=== PATIENT | female | born 1975 | race Hispanic/Latino ===

== ENCOUNTER 2023-08-21 09:03 | Day surgery (SDC) | payer OTHER, SELFPAY ==
[2023-08-21] VITALS (19 sets, daily range): BP systolic 71–101; BP diastolic 41–71; PULSE 51–82; RESP 12–62; TEMP 36.1–37.9; O2SAT 94–100; BMI 22.1
--- NOTE | 2023-08-21 | PATH_ITS ---
[facility] Accession Number: [id number] No. of containers..01 Tissue . 01 Material submitted: . uterus - UTERUS,UTERINE FIBROID,BILATERAL FALLOPIAN TUBES, RIGHT OVARY . 01 Diagnosis: Uterus, Left and Right Fallopian Tubes, Right Ovary, Supracervical Hysterectomy, Bilateral Salpingectomy, and Oophorectomy: Endometrium: Secretory phase. Myometrium: Leiomyomata with hyalinizing-type necrosis, symplastic change, and features of treatment effect. Serosa: Fibrovascular adhesions. Fallopian tubes: No significant pathologic abnormality. Ovary: Cystic follicles and corpus luteum. [facility] 08/31/2023 1047 Local . 01 Comment: The leiomyoma shows focal nuclear atypia consistent with symplastic/degenerative-type atypia. There is no evidence of malignancy. [employer] slides of this case are also reviewed by Dr. Ruthy Evans, who concurs with the given interpretation. . 01 Electronically signed: . Eliane Simmons MD, Pathologist NPI- [id number] . 01 Gross description: . The specimen is received in formalin labeled with the patient's name, , and uterus, uterine fibroid, bilateral fallopian tubes, and right ovary, consists of a disrupted, fragmented uterus (451 grams, 16.2 x 9.3 x 7.1 cm in aggregate), with two detached unoriented fimbriated fallopian tubes (5.2 x 0.6 cm and 7.9 x 0.7 cm, respectively), and a single presumed right ovary (14 grams, 3.7 x 3.2 x 1.9 cm), with no cervix or additional adnexa identified. The serosa is kennedy and roughened with no hemorrhage identified. The endometrium is red, lush, and averages 0.3 cm thick with no lesions grossly identified. The myometrium is kennedy and trabecular with multiple well-circumscribed white whorled nodules ranging from 0.3 to 6.1 cm in greatest dimension. The largest nodule has a yellow area of discoloration occupying approximately 20% of the cut surface with no additional hemorrhage or necrosis identified. . The longer fallopian tube has violaceous, smooth serosa with no cystic structures identified, and sectioning reveals an unremarkable stellate lumen. The shorter fallopian tube has violaceous roughened serosa with no cystic structures identified, and sectioning reveals an unremarkable stellate lumen. . The ovary has a kennedy cerebriform external surface, and sectioning reveals multiple cystic structures ranging from 0.2 to 1.4 cm in greatest dimension with variable contents of kennedy serous fluid to red-brown gelatinous material. The remaining cut surface is physiologic and unremarkable with no discrete lesions identified. . [employer] sections are submitted as follows: A1-A2: Endometrium. A3: Serosa. A4-A6: Rep nodules. A7: Longer fallopian tube to include one-half of bisected fimbria and cross sections. A8: Easton fallopian tube to include one-half of bisected fimbria and cross sections. A9-A10: Ovary with cystic structures. ([id number]) /MRV 08/22/2023 1906 Local . 01 Pathologist provided ICD-10: D25.0, N92.0 . 01 CPT . 309342 Specimen Comment: A courtesy copy of this report has been sent to [phone] Performed at: 01 [facility] [address] [place] [address], [place], [place] [id number] MD Haider Segura MD Phone: [phone]
[2023-08-21] MEDS: ACETAMINOPHEN IV 1,000 MG/100 ML VIAL 400 MG IV (09:36)
[2023-08-21] MEDS: SCOPOLAMINE 1 PATCH TOP (09:36)
[2023-08-21] MEDS: LACTATED RINGERS 1,000 ML 21 ML IV ×3 (09:45→13:36)
--- NOTE | 2023-08-21 09:56 | PM.PREOP ---
Pre-operative Note Interval Note History & Physical reviewed/Exam performed by Physician: Yes Changes to H&P: No H&P completed within 30 days and has changed as indicated here:: 07/31/23
[2023-08-21] MEDS: CEFAZOLIN 2 GM/100 ML PREMIX 100 ML IV (10:14)
[2023-08-21] MEDS: BUPIVACAINE 0.5% (PF) 30 ML, EPINEPHrine 0.15 MG INJ (10:43)
--- NOTE | 2023-08-21 10:46 | SUR.OPER ---
Lithotomy on padded OR bed. Amery Pad Positioner under torso. Head on pillow, arms padded and tucked at sides. Legs secured in padded yellow fins stirrups.
[2023-08-21] MEDS: ROPIVACAINE 0.2% PF 2 MG/ML 10ML AMP 20 ML INJ (10:54)
[2023-08-21] MEDS: SODIUM CHLORIDE 0.9% 30 ML, VASOPRESSIN 20 UNIT INJ (11:39)
[2023-08-21] MEDS: BUPIVACAINE LIPOSOME 266 MG/20 ML VIAL INJ (12:30)
--- NOTE | 2023-08-21 13:06 | PM.GYNOP.1 ---
Operative Date/Time/Diagnoses Date of procedure: 08/21/23 Time of procedure: 13:06 Pre-op diagnosis: Menorrhagia Dysmenorrhea Fibroid uterus Left endometrioma Post-op diagnosis: same Procedure & Clinicians Procedure: Procedures Operation Date: 08/21/23 10:15 Actual Procedure Side Surgeon p Diagnostic Laparoscopy converted to Open Abdominal Supracervical Hysterectomy, left salpingectomy, right Salping-oophorectomy, Debbie Arellano MD s Cystoscopy Debbie Arellano MD Indications: 48-year-old 0 with severe dysmenorrhea, menorrhagia, left endometrioma, and enlarged fibroid uterus Surgeon: Debbie Arellano Manufacturing Assistant: Zara Celeste Anesthesia Type: General and Local Operative Notes Findings: 12 week size multi fibroid uterus Endometriosis of the left adnexa Normal tubes Normal liver and gallbladder Wide uterus Closure Type: primary Specimen(s): left tube and right tube & ovary Applied: catheter (To continuous drainage) Estimated blood loss (mL): 200 Blood products transfused: none Procedure in detail: The patient was taken to the operating room where she was placed in the dorsal supine position. After adequate general endotracheal anesthesia was achieved, she was placed in the dorsal lithotomy position, and prepped and draped in the usual sterile fashion. A time-out was performed. A bivalve speculum was placed into the vagina and the anterior lip of the cervix was grasped with a single-tooth tenaculum. The cervical os was sequentially dilated until the Zumi uterine manipulator could pass easily into the endometrial cavity. The single-tooth tenaculum was removed from the anterior lip of the cervix. The bivalve speculum was removed from the vagina. Attention was then turned to the abdomen where 6 cc of 0.5% Marcaine with epinephrine were injected in the umbilical fold. The Veress needle was placed into the peritoneal cavity, and its placement confirmed by aspiration and drop test. The abdominal cavity was insufflated with 3 L of CO2. The Veress needle was removed, and a 5 mm trocar was placed without difficulty. Two other trocars were placed 4 cm lateral to the midline after 6 cc of 0.5% Marcaine with epinephrine were injected. Two 5 mm incisions were made. Two 5 mm trocars were placed under direct visualization. The abdomen and pelvis were inspected with the findings noted above. The right tube was grasped with an atraumatic grasper. Using the power seal, the mesosalpinx was cauterized and cut all the way down to the cornua of the uterus. The utero-ovarian vessels were cauterized and cut. The broad ligament and round ligament were cauterized and cut. On the left side the left tube was grasped with an atraumatic grasper. The mesosalpinx was cauterized and cut with the power seal. The utero-ovarian vessels were cauterized and cut. At this point there was found to be bowel adherent to the posterior lower uterine segment and cervix. There was an endometrioma in the left adnexa that burst with manipulation. The pelvis was copiously irrigated. The decision was made due to the bowel adhesions and the difficulty with visualization due to the size of the uterus, especially the width, to proceed with an open procedure. The instruments were removed from the abdomen. A Pfannenstiel skin incision was made 2 fingerbreadths above the pubic symphysis and carried through to the underlying layer of fascia. The fascia was nicked in the midline and the incision extended bilaterally with the Horne scissors. The superior aspect of the fascial incision was grasped with the Jaxon clamps, elevated, and the underlying rectus muscles dissected off sharply and bluntly. Attention was then turned to the inferior aspect of this incision which in a similar fashion was grasped with the Jaxon, elevated, and the underlying rectus muscles dissected off sharply and bluntly. The rectus muscles were in the midline. The peritoneum was identified and grasped between 2 hemostats. It was entered sharply with the Metzenbaum scissors. This incision was extended superiorly and inferiorly with good visualization of the bladder. Initially the Michael retractor system was placed into the incision. Could not visualize adequately. A decision was made to change to the O'Patricio O'Dior retractor system. This was placed with care to avoid entrapping the bowel. The bladder blade was inserted. The back blade with moist laps were placed to retract the bowel. The uterus was grasped with a 4 tooth tenaculum. A solution of 20 cc of Pitressin were placed in 30 cc of saline was prepared. Proximally 12 cc of this solution was injected sub serosal only. An incision was made with the Bovie and the large fibroid was grasped and dissected out of the uterus to decrease the volume of the uterus and increased visualization. The broad ligament and round ligament on the right side were clamped, transected, and suture ligated with 0 Vicryl. The bladder flap was created using the Metzenbaum scissors. On the left side the bowel was gently dissected off of the lower posterior uterine segment and cervix. Broad ligament and round ligament were clamped, transected, and suture ligated. The uterine artery on the left side was clamped, transected, and suture ligated. The remainder of the bladder flap was created and the bladder was taken down off the lower uterine segment and cervix. The Zumi uterine manipulator was removed from the uterus. The uterus was amputated using the Bovie and handed off for specimen. The tubes and right ovary were included in the specimen. The cervical canal was extensively cauterized with the Bovie. The cervix was closed with a series of simple interrupted sutures using 0 Vicryl. The pelvis was copiously irrigated with warm normal saline. There was no bleeding noted. The retractor and lap sponges were removed from the abdomen/incision. Due to the width of the uterus and the degree of adhesions, a decision was made to proceed with a cystoscopy. A cystoscopy was performed and there were urine jets from both ureteral orifices. There was also a bubble at the dome of the bladder. Attention was then turned back to the abdomen. The peritoneum was closed with 2-0 Vicryl in a running fashion. The fascia was reapproximated using 0 Vicryl in a running fashion. The subcutaneous layer was copiously irrigated with warm normal saline. No bleeding was noted. 20 cc of Exparel were injected above the fascia. Three simple interrupted sutures of 3-0 Vicryl were placed in the subcutaneous layer. The skin was closed with 4-0 Monocryl in a subcuticular fashion. The 3 laparoscopy incisions were also closed with Monocryl in a simple interrupted suture. Steri-Strips were placed over all of the incisions. Allevyn dressings were placed over the laparoscopy incisions. A Telfa, ABD pad, and Medipore tape were placed over the Pfannenstiel incision. Sponge, lap, and instrument counts were correct x2. The patient tolerated the procedure well, and was taken to PACU in stable condition. Complications: none Post-operative Condition: stable Disposition: PACU Plan for aftercare: To the center/acute care after recovery
[2023-08-21] MEDS: fentaNYL 100 MCG/2 ML INJ IV ×2 (13:18→13:25)
[2023-08-21] MEDS: ONDANSETRON 4 MG/2 ML INJ IV (13:32)
[2023-08-21] MEDS: HYDROMORPHONE 1 MG INJ IV (13:42)
[2023-08-21] MEDS: OXYCODONE IR 5 MG TABLET PO ×3 (14:13→18:35)
[2023-08-21] MEDS: MORPHINE 2 MG/ML INJ IV ×2 (15:36→21:30)
[2023-08-21] MEDS: LACTATED RINGERS 1,000 ML 100 ML IV (15:53)
--- NOTE | 2023-08-21 16:11 | PC.NURSE ---
RADIO INTERFERENCE SUPERVISOR ordered telemetry 1326. RADIO INTERFERENCE SUPERVISOR called @1410 to be notified that we dont have a tele unit on the center. Provider stated she wanted is for PACU and continous tele does not currently need to be on the patient.
--- NOTE | 2023-08-21 16:13 | PC.NURSE ---
1443- This RN called OBGYN to update provider on pt vitals. see [employer]. Pt transferred over from PACU with 70/40s BP and febrile with a temp of 100.3. Warm blankets removed. pt temp came down to 97F. pain controlled (see meditech) and BP retaken- stable.
[2023-08-21] MEDS: KETOROLAC 30 MG/ML VIAL IV (17:57)
--- NOTE | 2023-08-21 18:04 | PC.NURSE ---
1510: initial assessment completed-see [facility]. Pt groggy, but responds appropriately to verbal questions. VSS. 3 op sites notes on abdomen. Scant amount of blood observed on middle abd dressing, the other op sites are CD&I. Lower abd dressing CD&I. Gill patent w/ clear urine noted. Ice pack to incision. Call light w/in reach
[2023-08-21] MEDS: DOCUSATE 100 MG CAPSULE 200 MG PO (20:15)
[2023-08-21] MEDS: OXYCODONE IR 5 MG TABLET 10 MG PO (20:16)
[2023-08-21] MEDS: ACETAMINOPHEN 325 MG TABLET 650 MG PO (20:16)
[2023-08-22] MEDS: OXYCODONE IR 5 MG TABLET 10 MG PO ×4 (01:15→20:20)
[2023-08-22] MEDS: KETOROLAC 30 MG/ML VIAL IV (01:15)
[2023-08-22 01:16] VITALS: BP 95/61; PULSE 98; RESP 16; TEMP 37.1; O2SAT 98
[2023-08-22 06:00] VITALS: BP 85/56; PULSE 73; RESP 14; TEMP 37.2
[2023-08-22] MEDS: ACETAMINOPHEN 325 MG TABLET 650 MG PO ×3 (06:08→21:35)
[2023-08-22 06:42] LABS: Add Manual Diff / Slide Review NO; Basophils Absolute Auto 0 /uL (0-100); Eosinophils Absolute Auto 0 /uL (0-450); Eosinophils Percent Auto 0.1 % (2-4); Hematocrit 28.3 % (36-46); Hemoglobin 9.7 g/dL (12.0-16.0); Lymphocytes Absolute Auto 1100 /uL (1100-4500); Lymphocytes Percent Auto 11.9 % (25-40); Mean Corpuscular HGB Conc 34.4 % (30-36); Mean Corpuscular Hemoglobin 31.6 PG (26-34); Mean Corpuscular Volume 91.7 fL (80-100); Monocytes Absolute Auto 1100 /uL (0-900); Monocytes Percent Auto 12.1 % (3-14); Neutrophils Absolute Auto 6800 /uL (1500-7000); Neutrophils Percent Auto 75.9 % (50-75); Platelet Count 175 X10^3/uL (150-400); Red Blood Cell Count 3.08 X10^6/uL (4.0-5.2); Red Cell Distribution Width 13.4 % (11.6-14.8)
--- NOTE | 2023-08-22 07:59 | PM.PNPO.1 ---
Subjective Subjective Date Patient Seen: 08/22/23 Time Patient Seen: 07:59 Interval history: Postop day # 1 status post open supracervical hysterectomy/right salpingo-oophorectomy/left salpingectomy. Open procedure done due to size of the uterus and bowel to uterine adhesions as well as endometriosis in the left adnexa. Patient's pain is well controlled. She has tolerated soft diet. Exam Vital Signs (past 8 hours): - 08/22/23 01:16 08/22/23 06:00 Temperature 98.8 F 99.0 F Pulse Rate 98 H 73 Respiratory Rate 16 14 Blood Pressure 95/61 85/56 L Pulse Oximetry 98 Oxygen Delivery Method Room Air Narrative Exam Narrative: Generally: Patient lying in bed, no acute distress Lungs: Clear to auscultation bilaterally Cardiovascular: Regular rate and rhythm Abdomen: Soft and flat. Good bowel sounds Incisions: Clean dry and intact with dressings. Extremities: No edema, negative Homans Objective Labs 08/22/23 06:29 Labs: Laboratory Results - last 24 hr 08/22/23 06:29 WBC 9.0 RBC 3.08 L Hgb 9.7 L Hct 28.3 L MCV 91.7 MCH 31.6 MCHC 34.4 RDW 13.4 Plt Count 175 Neut % (Auto) 75.9 H Lymph % (Auto) 11.9 L Newport % (Auto) 12.1 Eos % (Auto) 0.1 L Baso % (Auto) 0.0 Neut # (Auto) 6800 Lymph # (Auto) 1100 Newport # (Auto) 1100 H Eos # (Auto) 0 Baso # (Auto) 0 PFSH Medical History Endometrioma of ovary Social History household members: spouse Smoking Status: Never smoker alcohol intake: current Assessment & Plan Post-op Postoperative Procedures: Procedures Operation Date: 08/21/23 10:15 Actual Procedure Side Surgeon p Diagnostic Laparoscopy converted to Open Abdominal Supracervical Hysterectomy, left salpingectomy, right Salping-oophorectomy, Debbie Arellano MD s Cystoscopy Debbie Arellano MD Postoperative day: 1 Postoperative status: doing well Postoperative plan: routine post-op care Postoperative plan narrative: Remove Gill catheter Ambulate Advance diet as tolerated Time Spent With Patient Time with patient: 15-24 minutes
[2023-08-22 08:18] VITALS: BP 93/58; RESP 16; TEMP 37.1; O2SAT 100
--- NOTE | 2023-08-22 08:55 | PC.NURSE ---
0810 Toradol given,Low transverse plus 3 drainage sites intact; the medium drainage site with very little red drainage, discontinued weeks catheter; pt tolerated well.VSS. in room.Patient very anxious about moving.
--- NOTE | 2023-08-22 10:18 | PC.NURSE ---
resting in bed,denies any pain.
--- NOTE | 2023-08-22 11:20 | PC.NURSE ---
Patient got out of bed,stood up and ambulated to the bathroom, voided at least 100cc of urine.Bladder scan revealed 55-72cc urine residual.She became lightheaded and dizziness, then back to bed with W?C
--- NOTE | 2023-08-22 11:31 | PC.NURSE ---
Gave her oxycodone 10 mg for pain scale of 6/10
--- NOTE | 2023-08-22 12:41 | PC.NURSE ---
patient in bed,deniesa any pain,relief with oxycodone.Resting
--- NOTE | 2023-08-22 14:13 | PC.NURSE ---
1300 Has pain scale of 2/10, gave tylenol 650 mg; up to bathroom to void; voided 300ml, ambulated to sink to do ADL.Did better with ambulation.
[2023-08-22] MEDS: OXYCODONE IR 5 MG TABLET PO (15:36)
[2023-08-22] MEDS: IBUPROFEN 600 MG TABLET PO ×2 (15:36→21:36)
--- NOTE | 2023-08-22 17:36 | PC.NURSE ---
Patient reports she got up to the bathroom independently and voiding; she tolerated it well.I comfortable
--- NOTE | 2023-08-22 19:02 | PC.NURSE ---
Patient in bed eating dinner,denies any pain or discomfort at this time
--- NOTE | 2023-08-22 21:19 | PC.NURSE ---
pt stable in room-10 of Oxy given 1/2 hr agon for pain with ambulation to BR of 7/10-pt settled in and sleeping for the time being-no further questions or requests for RN-bandages all Dry and intact-no vaginal bleeding
[2023-08-22] MEDS: DOCUSATE 100 MG CAPSULE 200 MG PO (21:35)
[2023-08-22 21:40] VITALS: BP 87/53; PULSE 68; RESP 18; TEMP 37.1; O2SAT 99
--- NOTE | 2023-08-22 22:33 | PC.NURSE ---
Pt stable and medicated-up to BR with RN assist-pt moving slow but doing well-Wounds Clean and dry-Medications given /10 pain when up and moving reduced when resting in bed- pt educated on next doses-written on board-pt performed pericare self-Vitals WNL-pt states, my blood pressure is always low. pt tucked back into bed resting comfortabley-RN to wake pt to stay on medication schedule-Pt voided moderate amount yellow urine @2145 and performed hand hygiene. This RN tuened lights off per pt request dark-tucked into bed-call light within reach.
[2023-08-23] MEDS: OXYCODONE IR 5 MG TABLET 10 MG PO ×3 (00:35→08:46)
[2023-08-23 04:00] VITALS: BP 99/66; PULSE 78; RESP 15; TEMP 37.1; O2SAT 98
[2023-08-23] MEDS: IBUPROFEN 600 MG TABLET PO ×2 (04:05→09:55)
[2023-08-23] MEDS: ACETAMINOPHEN 325 MG TABLET 650 MG PO ×2 (04:05→09:54)
[2023-08-23] MEDS: DOCUSATE 100 MG CAPSULE 200 MG PO (08:45)
--- NOTE | 2023-08-23 09:05 | PC.NURSE ---
here spoke to Fabian; patient's about patient care at home,meds and physical limitation and appointment after surgery,patient in bed,VSS,ambulating independly, gave her oxycodone and stool softener.Discharged home.
== END 2023-08-23 10:43 | disposition home or self-care (01) ==
LOC: AC 15:09 → OR 15:16 → OB 15:31 → LABOR 15:33
PROVIDERS: PCP Specialist; Referring Provider Obstetrics & Gynecology; Visit Provider Obstetrics & Gynecology
PROC: 0UT94ZL Resection of Uterus, Supracervical, Percutaneous Endoscopic Approach (ICD-10-PCS; CPT 58180; principal; 2023-08-21 10:15)
PROC: 0TJB8ZZ Inspection of Bladder, Via Natural or Artificial Opening Endoscopic (ICD-10-PCS; CPT 52000; 2023-08-21 10:15)
DX: N94.6 Dysmenorrhea, unspecified (principal); D25.0 Submucous leiomyoma of uterus; N92.0 Excessive and frequent menstruation with regular cycle; N80.122 Deep endometriosis of left ovary; N73.6 Female pelvic peritoneal adhesions (postinfective); N83.10 Corpus luteum cyst of ovary, unspecified side
CPT/HCPCS: 58180; 36415; 81025; 85025; C9290; J0131; J0171; J0690; J1100; J1170; J1885; J2250; J2270; J2405; J2704; J2795; J3010; J3490

== ENCOUNTER → 2023-11-30 14:01 | Outpatient (CLI) | payer OTHER, SELFPAY ==
[2023-12-02 13:11] LABS: Candida species Negative (Negative); Gardnerella vaginalis Negative (Negative); Trichomoas vaginalis Negative (Negative)
== END ==
PROVIDERS: PCP Specialist; Visit Provider Obstetrics & Gynecology
DX: N89.8 Other specified noninflammatory disorders of vagina (principal)
CPT/HCPCS: 87480; 87510; 87660

== ENCOUNTER → 2024-06-22 12:16 | Outpatient (CLI) | payer OTHER, SELFPAY ==
[2024-06-22 13:22] LABS: Add Manual Diff / Slide Review NO; Basophils Absolute Auto 0 /uL (0-100); Basophils Percent Auto 0.2 % (0-2); Eosinophils Absolute Auto 0 /uL (0-450); Eosinophils Percent Auto 0.5 % (2-4); Hematocrit 36.9 % (36-46); Hemoglobin 12.3 g/dL (12.0-16.0); Lymphocytes Absolute Auto 1200 /uL (1100-4500); Lymphocytes Percent Auto 23.2 % (25-40); Mean Corpuscular HGB Conc 33.4 % (30-36); Mean Corpuscular Volume 92.7 fL (80-100); Monocytes Absolute Auto 300 /uL (0-900); Neutrophils Absolute Auto 3500 /uL (1500-7000); Neutrophils Percent Auto 69.1 % (50-75); Platelet Count 233 X10^3/uL (150-400); Red Blood Cell Count 3.98 X10^6/uL (4.0-5.2)
[2024-06-22 13:52] LABS: Free T4, Direct Thyroxine 1.11 ng/dL (0.78-2.19)
[2024-06-22 14:06] LABS: Thyroid Stimulating Hormone 1.35 uIU/mL (0.47-4.68)
[2024-06-22 15:34] LABS: Follicle Stimulating Hormone 9.79 mIU/mL
[2024-06-22 15:50] LABS: Estradiol, Total 205.9 pg/mL
== END ==
PROVIDERS: PCP Specialist; Referring Provider Obstetrics & Gynecology; Visit Provider Obstetrics & Gynecology
DX: N95.1 Menopausal and female climacteric states (principal); Z79.890 Hormone replacement therapy; R53.83 Other fatigue
CPT/HCPCS: 36415; 82670; 83001; 84439; 84443; 85025